=== PATIENT | male | born 1955 | race Caucasian/White ===

== ENCOUNTER 2024-05-11 20:57 | Inpatient (IN) | payer MEDICARE, SELFPAY ==
[2024-05-11 14:23] VITALS: BP 150/73
[2024-05-11 14:43] LABS: % Basophils 0.2 % (0-2); % Eosinophils 0.1 % (0-6); % Immature Granulocytes 0.2 % (0-0.5); % Lymphocytes 6.6 % (20.5-51.1); % Monocytes 3.8 % (1.7-9.3); % Neutrophils 89.1 % (42.2-75.2); Absolute Lymphocytes 0.9 10^3/uL (1.2-3.4); Absolute Monocytes 0.5 10^3/uL (0.1-0.6); Absolute Neutrophils 11.9 10^3/uL (1.4-6.5); Hematocrit 46.1 % (39.0-52.0); Mean Corp Hgb Conc. 34.7 g/dL (33.0-37.0); Mean Corpuscular Hgb 30.4 pg (27.0-31.0); Mean Corpuscular Volume 87.6 fL (80.0-94.0); Mean Platelet Volume 8.7 fL (7.4-10.4); Nucleated Red Blood Cells % 0 % (-); Platelet Count 276 10^3/uL (130-400); Red Blood Cell Count 5.26 10^6/uL (4.70-6.10); Red Cell Dist. Width 13.3 % (11.5-14.5); White Blood Cell Count 13.3 10^3/uL (4.8-10.8)
[2024-05-11 14:57] LABS: ALT (SGPT) 26 U/L (0-50); AST (SGOT) 27 U/L (17-59); Albumin 4.6 g/dl (3.5-5.0); Alkaline Phosphatase 79 U/L (38-126); Blood Urea Nitrogen 18 mg/dl (9-20); Calcium 9.2 mg/dl (8.4-10.2); Carbon Dioxide 28 mmol/L (22-30); Chloride 104 mmol/L (98-107); Glucose 123 mg/dl (70-99); Potassium 4.7 mmol/L (3.5-5.1); Sodium 142 mmol/L (135-145); Total Bilirubin 0.8 mg/dl (0.2-1.3); Total Protein 7.3 g/dl (6.3-8.2); eGFR > 60.00
[2024-05-11 15:07] LABS: Lipase 44 U/L (23-300)
--- NOTE | 2024-05-11 16:55 | ED.GENMED ---
History of Present Illness
General
Chief Complaint: Abdominal Pain
Source: patient
Exam Limitations: none
Time Seen by Provider: 05/11/24 16:40
History of Present Illness
History of Present Illness:
See MDM
Past History
Past History
ED Past Medical History: Other (Familial polyposis)
ED Past Surgical History: Bowel resection
Social History
Tobacco: Non-smoker
Alcohol: None
Personal:
Living: with family
Employment: Employed
Family History
Family History: Other (Familial polyposis)
Phy Exam
Physical Exam
Physical Exam:
See MDM
Course
Orders/Labs/Results
Orders:
Orders
05/11/24 14:35
Complete Blood Count/With Diff Urgent
Comprehensive Metabolic Panel Urgent
Lipase Urgent
05/11/24 16:51
CT Abd/pel W Iv And Oral Contr Urgent
Comment: prior SBO with resection
Reason For Exam: Abd pain, bloating
0.9% Sodium Chloride 1000 ml [Nss] 1,000 ml IV BOLUS
Iohexol [Omnipaque] See Protocol PO NOW STA
Ketorolac [Toradol] 30 mg IV NOW STA
Ondansetron Injectable [Zofran] 4 mg IV NOW STA
Abnormal Lab Results
05/11/24
14:35
WBC 13.3 H 10^3/uL
(4.8-10.8)
Absolute Neuts (auto) 11.9 H 10^3/uL
(1.4-6.5)
Absolute Lymphs (auto) 0.9 L 10^3/uL
(1.2-3.4)
Neutrophils % 89.1 H %
(42.2-75.2)
Lymphocytes % 6.6 L %
(20.5-51.1)
Glucose 123 H mg/dl
(70-99)
05/11/24 14:35
05/11/24 14:35
Vital Signs
Initial and Last Documented VS:
Initial Vital Signs
Temp Pulse Resp BP Pulse Ox
97.6 F 87 16 150/73 96
05/11/24 14:23 05/11/24 14:23 05/11/24 14:23 05/11/24 14:23 05/11/24 14:23
Last Documented Vital Signs
Temp Pulse Resp BP Pulse Ox
97.6 F 80 20 158/78 97
05/11/24 14:23 05/11/24 19:09 05/11/24 19:09 05/11/24 19:09 05/11/24 19:09
MDM/Problems Addressed
Differential Diagnosis Includes:
HPI and MDM Narrative:
68-year-old male presenting with generalized abdominal pain and bloating. Symptoms have progressed since Tuesday. Patient is concerned this is another small bowel obstruction. 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
bowel resections in the past. His last surgery was in 2022 at [place]. Patient states he is able to sip some water but cannot eat. His last meal was last night. He did have a bowel movement today and is passing some gas
Given his prior history, will obtain CT to rule out small bowel fraction
Physical exam
General: Well appearing and non-toxic
HEENT: protecting airway. Mildly dry mucous membranes
Neck: appears supple
CV: No evidence of cyanosis
Resp: No accessory muscle use
Abd: Non-distended. Soft. Bowel sounds auscultated
Extremities: No deformities
Neuro: alert
Psych: Normal affect
Skin: Intact
Problems Addressed including Acute and Chronic Conditions affecting care:
1. Abdominal pain
Acuity: acute
Prognosis: stable
Details: Given his prior history, will obtain CT to rule out small bowel obstruction
Updates
Patient was able to tolerate oral contrast. He is feeling better but CT does show some concern for air-fluid levels. We discussed small bowel obstruction versus partial small bowel obstruction versus ileus. Will admit for fluids and serial
abdominal exams
Differential Diagnosis (but not limited to): Small bowel obstruction, ileus, partial small bowel obstruction
Testing considered: Urinalysis but he denies symptoms
Drug therapy (if applicable): OTC meds, please see d/c instruction regarding Rx drugs
Amount and/or Complexity of Data Reviewed
Clinical info obtained from: Patient
External data reviewed: N/A
Labs I independently reviewed (but not limited to): Mild leukocytosis
Radiology: N/A
Pulse Ox: not hypoxic
EKG independently reviewed: N/A
Gold Plater: N/A
Critical Care: N/A
Risk of Complication:
Social Determinants of health: Good social support
Discussed with other providers: Hospitalist
Escalation of Care includes Admit/Obs: Given the concern for partial small bowel obstruction versus ileus, will admit
Occasional wrong word or 'sound a like' substitutions may have occurred due to the inherent limitations of voice recognition software. Read the chart carefully and recognize, using context, where substitutions have occurred.
*Critical Care Note
Total Time (30-74mins, 75-104mins- exclusive of procedures): Not Applicable
ED Attending Note
-
Portions of this chart may have been created with voice recognition software.� Occasional wrong word or��sound alike� substitutions may have occurred due to the inherent limitations of voice recognition software.
Discharge Plan
Departure
Patient Disposition: Admit
Date of Disposition: 05/11/24
Time of Disposition: 20:02
Admit to: Med/Surg
Presentation/result/management discussed w/ accepting MD/DO: Hospitalist
Discharge Problem:
Partial small bowel obstruction
Prescriptions:
No Action
No Current Medications
0
Referrals:
Dashawn Lee, [Family Provider] -
Interventions
Interventions:
*Risk Screen - Suicide Last Done: 05/11/24 14:23
*General Assessment Last Done: 05/11/24 16:10
*Neglect/Abuse Screening Last Done: 05/11/24 14:23
NV-Ybcpfx-Mjuyrjrkwy Assessment Last Done: 05/11/24 16:10
Discharge Date and Time
Print Language: KHMER
[2024-05-11] MEDS: NSS 1000 IV ×2 (17:07→22:19)
[2024-05-11] MEDS: ZOFRAN 4 MG IV (17:08)
[2024-05-11] MEDS: TORADOL 30 MG IV (17:08)
[2024-05-11] MEDS: OMNIPAQUE 50 ML PO (17:08)
[2024-05-11 19:09] VITALS: BP 158/78
--- NOTE | 2024-05-11 20:09 | HPS.HSE ---
Family Physician
-
Family Physician: Dashawn Lee
Chief Complaint
-
abdominal pain/distention
History of Present Illness
68-year-old male with PMH for Peutz-Jeghers's syndrome, multiple abdominal surgeries , last bowel resection in 2020 presenting with generalized abdominal pain and bloating since last Tuesday. it progressively got worse. stated nausea. denied
vomiting or diarrhea. had his regular BM today morning. Patient states he is able to sip some water but cannot eat. His last meal was last night.denied, ORTIZ, dizzy or syncope. denied fever, chills, chest pain,sob. denied dysuria or hematuria.
admitting for further management. CT pending. concern for SBO.
Medical History
Past Medical History
Past Medical History: Reports Other
Additional Past Medical History:
peutz-jeghers syndrome
Hyperlipidemia
Anxiety
Past Surgical History: Reports Other
Additional Past Surgical History:
bowel resection
Social History
Tobacco: Non-smoker
Alcohol: None
Drug: None
Personal:
Living: With Family
Family History
Family History: Not pertinent
Allergies / Home Medications
Allergies reflects when Allergies were last updated in [employer].
Home Medications with original date entered in [employer]
Allergy/Medication List:
Allergies
Allergy/AdvReac Type Severity Reaction Status Date / Time
No Known Drug Allergies Allergy Unknown Verified 05/11/24 14:27
Home Medications
No Meds [No Current Medications] 12/03/19
Review of Systems
-
Constitutional: Reports No Symptoms
EENT: Reports No Symptoms
Respiratory: Reports No Symptoms
Cardiac: Reports No Symptoms
Abdomen/GI: Reports Abdominal Pain and Nausea
: Reports No Symptoms
Musculoskeletal: Reports No Symptoms
Skin: Reports No Symptoms
Neurological: Reports No Symptoms
Endocrine: Reports No Symptoms
Hematologic/Lymphatic: Reports No Symptoms
Psych: Reports No Symptoms
Physical Exam
Vital Signs
Vital Signs
Temp Pulse Resp BP Pulse Ox
97.6 F 80 20 158/78 97
05/11/24 14:23 05/11/24 19:09 05/11/24 19:09 05/11/24 19:09 05/11/24 19:09
Physical Exam
General: Well Developed, Well Nourished and No Apparent Distress
HEENT: NormoCephalic, Moist mucous membranes and Atraumatic
Respiratory: Clear
Cardiac: S1/S2 and Regular Rhythm; No Murmur or Rub
GI: Soft, Non Tender, Normal Bowel Sounds and Distended; No Organomegaly
Rectal: Deferred by Provider
Musculoskeletal: No Clubbing, No Cyanosis and No Edema
Skin: No Rash
Neuro: AO x 3 and Nonfocal/grossly intact
Psych: Calm
Laboratory Results
-
05/11/24 14:35
05/11/24 14:35
Laboratory Results
Total Bilirubin 0.8 mg/dl (0.2-1.3) 05/11/24 14:35
AST 27 U/L (17-59) 05/11/24 14:35
ALT 26 U/L (0-50) 05/11/24 14:35
Alkaline Phosphatase 79 U/L (38-126) 05/11/24 14:35
Lipase 44 U/L (23-300) 05/11/24 14:35
Data Reviewed
-
Lab Data: Labs Reviewed by me
Impression/Plan
-
##Small bowel obstruction versus ileus
# History of Peutz-Jeghers with multiple bowel obstructions
-N.p.o.
-Fluids continued for hydration
-surgery consulted
-Toradol prn for pain
-Zofran prn for n/v
Leukocytosis likely stress reaction
-WBC 13.3, patient is afebrile
-Continue to monitor
#atrial tachycardia
-Cardizem continued
#HLD
-statin continued
#DVT Prophylaxis
-scd
#CODE status
-full code
--- NOTE | 2024-05-11 20:50 | W.PN.UPDATE ---
Update Note
Progress Note Update
This note serves as an addendum to the H&P by inside sales account executive SAM Mandie SWEENEY
HPI
68M HX r Peutz-Jeghers's syndrome, multiple abdominal surgeries , last bowel resection in 2020 pseen at ER;
- progresively worsening generalized abdominal pain and bloating since last Tuesday
- onset of nausea but no vomiting or diarrhea.
- able to tolerate sips of water but cannot eat.
- last meal was last night
- Last regular BM this morning
ROS
Denied ORTIZ, dizzy or syncope. denied fever, chills, chest pain,sob. denied dysuria or hematuria.
PHX: as above
Reviewed VS:
Vital Signs
Temp Pulse Resp BP Pulse Ox
97.6 F 80 20 158/78 97
05/11/24 14:23 05/11/24 19:09 05/11/24 19:09 05/11/24 19:09 05/11/24 19:09
PE
Gen: No Apparent Distress
HEENT: dry mucous membranes
Neck: supple
Lungs: CTA
Cor: S1/S2 and Regular Rhythm
Abdomen: Soft, Non Tender, Normal Bowel Sounds and Distended
CLINICAL MARKETING MANAGER: AAO3. NFND
MS: No Edema
Psych:calm
data
05/11/24
14:35
WBC 13.3 H
Hgb 16.0
Plt Count 276
BUN 18
Creatinine 0.9
[address] with PO contrast: - some concern for air-fluid levels DDX: partial SBO vs ileus.
Last hospitalist admission: 01/25/2020 - 01/27/2020 DC DXs
1. Small bowel obstruction.
2. Gallstones.
3. Degenerative joint disease, L5-S1.
4. Peutz-Jeghers syndrome.
ASSESSMENT & PLAN
Partial SBO vs ileus.
HX Peutz-Jeghers with multiple bowel obstructions
- IVF and NPO
- Toradol prn for pain
- Zofran prn for n/v
- GS consulted
Leukocytosis likely stress reaction
-WBC 13.3, afebrile
- trend WCC
HX [place] tachycardia
- on SKI MOLDER Cardizem
HLD
- c/w SKI MOLDER statin
DVT Px: SQH
Ful code
IP TLM
[2024-05-11 22:15] VITALS: BP 138/78; BMI 23.8
[2024-05-11] MEDS: LIPITOR 10 MG PO (22:56)
[2024-05-11] MEDS: MELATONIN 5 MG PO (22:56)
--- NOTE | 2024-05-11 23:09 | PTCARENOTE ---
Patient arrived to unit from ED via stretcher. Patient able to safely ambulate into room 318-1 on . Pt. AAOx3 and able to make needs known. No c/o pain. Tele #[id number] placed on patient. NPO discussed with patient. Oriented to room. Call cummings within
reach. Plan of care ongoing.
[2024-05-12 03:34] VITALS: BP 145/75
[2024-05-12] MEDS: TORADOL 10 MG IV ×2 (04:03→19:33)
[2024-05-12 07:05] VITALS: BP 131/74
[2024-05-12 07:26] LABS: Hematocrit 41.3 % (39.0-52.0); Mean Corp Hgb Conc. 33.9 g/dL (33.0-37.0); Mean Corpuscular Hgb 30.4 pg (27.0-31.0); Mean Corpuscular Volume 89.8 fL (80.0-94.0); Mean Platelet Volume 9.6 fL (7.4-10.4); Platelet Count 232 10^3/uL (130-400); Red Cell Dist. Width 13.6 % (11.5-14.5); White Blood Cell Count 7.3 10^3/uL (4.8-10.8)
[2024-05-12] MEDS: NSS 1000 IV ×2 (08:28→21:06)
[2024-05-12] MEDS: HEPARIN 5000 UNITS SC ×2 (08:28→19:32)
[2024-05-12] MEDS: CARDIZEM CD 120 MG PO (08:28)
[2024-05-12 10:59] VITALS: BP 132/78
--- NOTE | 2024-05-12 11:26 | CON.GS ---
Addendum entered and electronically signed by Garret Oconnor MD 05/12/24 11:41:
Patient is a 68 yo M with a PMH of HLD and Peutz-Jeghers syndrome c/b SBO's s/p 4 prior exploratory laparotomies and bowel resections most recently in 2020 at [facility] for anastomotic revision. He has had prior issues with small bowel obstructions,
but none since 2020. He presents with similar though mild symptoms of nausea and abdominal distention. No episodes of vomiting. No fevers or chills. Currently feels improved and is passing flatus. He is interested in trying liquids.
Gen: NAD
Abd: soft, NT/ND, non-peritoneal
Labs and CT scan imaging were reviewed
-- No plans for surgical intervention
-- Trial of clears, OK to ADAT to fulls
-- OOB/ambulate, minimize narcotics, correct electrolytes
Original Note:
Medical History
-
History of Present Illness:
Mr Nam with a h/o PJS and prior transverse colon resection x1 and SBR x2 for unresectable polyps with recurrent SBO's thereafter with last admission in 2019 for this who reports he underwent ex lap for christian and resection of bowel at at prior
anastomosis site February of 2020 at [facility]. He has not had any bowel obstructions since that time, until yesterday when he developed symptoms similar to prior SBO's but more mild. He was nauseated with abdominal distention and generalized abdominal
pain but denies vomiting. He notes that today, he feels somewhat better and has been passing flatus with improvement in pain. He denies fevers or chills.
Past Medical History
Past Medical History: Hypercholesterolemia and Other (peutz-jeghers syndrome, recurrent SBO)
Past Surgical History: Bowel Resection (Ex lap and SBR for 2 nonresectable polyps, transverse colon resection x1 for polyps. Ex lap 02/2020 for CHRISTIAN and resection of prior stenosed anastomosis at [facility])
Social History
Tobacco: Non-Smoker
Personal:
Living: With Family
Family History
Family History: Other (peutz-jeghers syndrome)
Allergies / Home Medications
Allergy/AdvReac Type Severity Reaction Status Date / Time
No Known Drug Allergies Allergy Unknown Verified 05/11/24 14:27
�Medication �Instructions �Recorded �Confirmed �Type
diltiazem HCl 120 mg 120 mg PO DAILY 05/11/24 05/11/24 History
capsule,extended release 24 hr
(Cardizem CD)
simvastatin 20 mg tablet 20 mg PO HS 05/11/24 05/11/24 History
Review of Systems
-
History Source: Patient
All other systems: Negative unless noted
A 10 point review of systems was completed, and was negative except as per HPI.
Physical Exam
Vital Signs
Temp Pulse Resp BP Pulse Ox
98.1 F 79 18 132/78 99
05/12/24 10:59 05/12/24 10:59 05/12/24 10:59 05/12/24 10:59 05/12/24 10:59
05/11/24 05/12/24 05/13/24
06:59 06:59 06:59
Actual Weight 81.647 kg
Body Mass Index (BMI) 23.8
Lab Results
05/12/24 06:19
05/11/24 14:35
WBC 7.3 10^3/uL (4.8-10.8) 05/12/24 06:19
Hgb 14.0 g/dL (13.0-18.0) 05/12/24 06:19
Hct 41.3 % (39.0-52.0) 05/12/24 06:19
Plt Count 232 10^3/uL (130-400) 05/12/24 06:19
Abs Immat Gran (auto) 0.0 10^3/uL (0-0.05) 05/11/24 14:35
Neutrophils % 89.1 % (42.2-75.2) H 05/11/24 14:35
Physical Exam
General: Well Developed and Well Nourished
HEENT: Moist Mucous Membranes
Respiratory: Non Labored Respirations
GI: Soft, Non Tender and Distended (mild)
Neuro: Awake, Alert and AO x 3
Psych: Calm
Data Reviewed
-
CT Scan: Image Personally Visualized and interpreted, Report Reviewed by me, Discussed with Physician and Discussed with Patient
Labs: Labs Reviewed by me, Discussed with Physician and Discussed with Patient
Old Records: Reviewed
Assessment / Plan
-
68 yo male with h/o PJS and prior transverse colon resection x1 and SBR x2 for unresectable polyps with recurrent SBO's thereafter with last admission in 2019 for this who reports he underwent ex lap for christian and resection of bowel at at prior
anastomosis site February of 2020 at [facility] with no SBO's since that time. Presenting with nausea, abdominal pain and distention. CT imaging reviewed with findings consistent with partial sbo likely adhesive vs possible ileus/enteritis. Clinically
improved this am with resolution of nausea and pain, passing flatus. AFVSS. No leukoctysois.
--Will follow nonoperatively at this time for continued clinical improvement
--Start on clear liquid diet and advance as tolerated to fulls
--Analgesics/antiemetics prn
--Medical management as per primary team, d/w Dr. Mayberry
--- NOTE | 2024-05-12 11:44 | W.PN.HOSP.TC ---
Today's Communication/Plan
-
Advance diet
Assessment / Plan
Assessment / Plan
Impression:
Patient with multiple previous abdominal surgery, last surgery was 4 years ago on 2020, came to the ER with generalized abdominal pain and bloating.
CT abdomen pelvis shows:
Findings suggesting developing small bowel obstruction/ileus with a transition point in the mid abdomen at an anastomotic site. Similar to previous exam.
New small bowel wall thickening. This can be seen with enteritis due to infection or inflammation. Ischemia is less likely but not excluded.
Mild free fluid in the mid abdomen likely reactive.
Gallstones. Increased in number.
Assessment/plan:
Small bowel obstruction versus ileus.
CT abdomen pelvis shows:
Findings suggesting developing small bowel obstruction/ileus with a transition point in the mid abdomen at an anastomotic site. Similar to previous exam.
New small bowel wall thickening. This can be seen with enteritis due to infection or inflammation. Ischemia is less likely but not excluded.
Mild free fluid in the mid abdomen likely reactive.
Gallstones. Increased in number
History of Peutz-Jeghers with multiple bowel obstructions
05/12
Discussed with surgery team
Will start clear liquid diet.
Patient is passing gases
If tolerates clear liquid will do soft diet
Leukocytosis likely stress reaction
Resolved
Atrial tachycardia
-Cardizem continued
No need for director of analytics
Hyperlipidemia
-statin continued
CODE STATUS: Full code
DVT prophylaxis: SCDs
Diet: start clear liquid diet
I spent 65 minutes giving direct care to the patient including chart review, talking to consultants, talking to treatment team, family communication.
Anticipated Discharge: Within 24 hours
Subjective/Interval History
-
Date of Service: May 12, 2024
Patient seen and examined at bedside, denies any chest pain or shortness of breath, improved abdominal pain, no nausea, no vomiting, no diarrhea or constipation.
Passing gas but no bowel movement, last bowel movement was yesterday.
Discussed with surgery team.
Will start clear liquid diet.
Objective Data
-
Labs:
Laboratory Results
05/12/24
06:19
WBC 7.3
Hgb 14.0
Hct 41.3
Plt Count 232
Vital Signs:
Vital Signs
Temp Pulse Resp BP Pulse Ox
98.1 F 79 18 132/78 99
05/12/24 10:59 05/12/24 10:59 05/12/24 10:59 05/12/24 10:59 05/12/24 10:59
Physical Exam
-
General: Well Developed, Well Nourished, No Apparent Distress and Comfortable
HEENT: Normocephalic, Atraumatic, Moist Mucous Membranes, No Ptosis, PERRLA and Nose Appears Normal
Respiratory: Clear to Auscultation and Non Labored Respirations
Cardiac: Regular Rhythm and S1/S2
Breast: Deferred by me
GI: Soft, Nontender, Nondistended and Normal Bowel Sounds
Genito-urinary: No Costovertebral Tender
Musculoskeletal: No Clubbing, No Cyanosis and No Edema
Skin: Warm
Neuro: Awake, Alert, Oriented, AO x 3 and No Motor Deficits
Psych: Calm
Data Reviewed
-
Diagnostic Radiology: Image personally visualized and interpreted and Report Reviewed by me
CT Scan: Image personally visualized and interpreted and Report Reviewed by me
Ultrasound: Image personally visualized and interpreted and Report Reviewed by me
MRI: Image personally visualized and interpreted and Report Reviewed by me
Medical Tests (Nuc Med, Echo etc): Image personally visualized and interpreted and Report Reviewed by me
Labs: Labs Reviewed by me
Old Records: Reviewed
--- NOTE | 2024-05-12 12:57 | CM ---
CM met with pt at bedside.
Pt resides with spouse in a 2SH with no concerns.
Ind with amb/adl's using no AD. No DME. + [employer]. 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
PCP is Dashawn Lee and pharmacy is [facility]
No HC or SNF history.
DC dispo home no skilled dc needs anticipated.
[2024-05-12 14:59] VITALS: BP 145/84
[2024-05-12] MEDS: LIPITOR 10 MG PO (21:04)
[2024-05-12] MEDS: MELATONIN 5 MG PO (21:04)
[2024-05-12 23:23] VITALS: BP 124/75
[2024-05-13] MEDS: TORADOL 10 MG IV (01:33)
[2024-05-13 07:00] VITALS: BP 123/66
[2024-05-13 07:20] LABS: Hematocrit 39.1 % (39.0-52.0); Hemoglobin 13.2 g/dL (13.0-18.0); Mean Corp Hgb Conc. 33.8 g/dL (33.0-37.0); Mean Corpuscular Hgb 30.1 pg (27.0-31.0); Mean Corpuscular Volume 89.3 fL (80.0-94.0); Mean Platelet Volume 9.3 fL (7.4-10.4); Platelet Count 197 10^3/uL (130-400); Red Blood Cell Count 4.38 10^6/uL (4.70-6.10); Red Cell Dist. Width 13.3 % (11.5-14.5); White Blood Cell Count 6.5 10^3/uL (4.8-10.8)
[2024-05-13] MEDS: HEPARIN 5000 UNITS SC (08:22)
[2024-05-13] MEDS: CARDIZEM CD 120 MG PO (08:22)
--- NOTE | 2024-05-13 11:50 | W.PN.HOSP.TC ---
Today's Communication/Plan
-
Discharge home today if tolerates lunch
Assessment / Plan
Assessment / Plan
Impression:
Patient with multiple previous abdominal surgery, last surgery was 4 years ago on 2020, came to the ER with generalized abdominal pain and bloating.
CT abdomen pelvis shows:
Findings suggesting developing small bowel obstruction/ileus with a transition point in the mid abdomen at an anastomotic site. Similar to previous exam.
New small bowel wall thickening. This can be seen with enteritis due to infection or inflammation. Ischemia is less likely but not excluded.
Mild free fluid in the mid abdomen likely reactive.
Gallstones. Increased in number.
Assessment/plan:
Small bowel obstruction versus ileus.
CT abdomen pelvis shows:
Findings suggesting developing small bowel obstruction/ileus with a transition point in the mid abdomen at an anastomotic site. Similar to previous exam.
New small bowel wall thickening. This can be seen with enteritis due to infection or inflammation. Ischemia is less likely but not excluded.
Mild free fluid in the mid abdomen likely reactive.
Gallstones. Increased in number
History of Peutz-Jeghers with multiple bowel obstructions
05/12
Discussed with surgery team
Will start clear liquid diet.
Patient is passing gases
If tolerates clear liquid will do soft diet
05/13
Tolerating diet.
Had bowel movement overnight.
Will discharge home if tolerates low residual diet at lunch.
Leukocytosis likely stress reaction
Resolved
Atrial tachycardia
-Cardizem continued
No need for gambling monitor
Hyperlipidemia
-statin continued
CODE STATUS: Full code
DVT prophylaxis: SCDs
Diet: start clear liquid diet
I spent 50 minutes giving direct care to the patient including chart review, talking to consultants, talking to treatment team, family communication.
Anticipated Discharge: Today
Subjective/Interval History
-
Date of Service: May 13, 2024
Patient seen and examined at bedside, denies any chest pain or shortness of breath, no abdominal pain, no nausea, no vomiting, no diarrhea or constipation.
Tolerating diet
Discharge if tolerates lunch meal.
Objective Data
-
Labs:
Laboratory Results
05/13/24
06:38
WBC 6.5
Hgb 13.2
Hct 39.1
Plt Count 197
Vital Signs:
Vital Signs
Temp Pulse Resp BP Pulse Ox
98.9 F 86 18 123/66 96
05/13/24 07:00 05/13/24 07:00 05/13/24 07:00 05/13/24 07:00 05/13/24 07:00
I&O
05/12/24 05/13/24 05/14/24
06:59 06:59 06:59
Intake Total 720 / 720 1440 / 1440
Balance 720 / 720 1440 / 1440
Physical Exam
-
General: Well Developed, Well Nourished, No Apparent Distress and Comfortable
HEENT: Normocephalic, Atraumatic, Moist Mucous Membranes, No Ptosis, PERRLA and Nose Appears Normal
Respiratory: Clear to Auscultation and Non Labored Respirations
Cardiac: Regular Rhythm and S1/S2
Breast: Deferred by me
GI: Soft, Nontender, Nondistended and Normal Bowel Sounds
Genito-urinary: No Costovertebral Tender
Musculoskeletal: No Clubbing, No Cyanosis and No Edema
Skin: Warm
Neuro: Awake, Alert, Oriented, AO x 3 and No Motor Deficits
Psych: Calm
--- NOTE | 2024-05-13 11:53 | W.DCSUMMARY ---
Discharge Summary
Discharge Data
Date of Admission: 05/11/24
Date of Discharge: 05/13/24
-
Pending Results: No
Hospital Course
Small bowel obstruction versus ileus.
CT abdomen pelvis shows:
Findings suggesting developing small bowel obstruction/ileus with a transition point in the mid abdomen at an anastomotic site. Similar to previous exam.
New small bowel wall thickening. This can be seen with enteritis due to infection or inflammation. Ischemia is less likely but not excluded.
Mild free fluid in the mid abdomen likely reactive.
Gallstones. Increased in number
History of Peutz-Jeghers with multiple bowel obstructions
05/12
Discussed with surgery team
Will start clear liquid diet.
Patient is passing gases
If tolerates clear liquid will do soft diet
05/13
Tolerating diet.
Had bowel movement overnight.
Will discharge home if tolerates low residual diet at lunch.
Leukocytosis likely stress reaction
Resolved
Atrial tachycardia
-Cardizem continued
No need for residential monitor
Hyperlipidemia
-statin continued
CODE STATUS: Full code
DVT prophylaxis: SCDs
Diet: start clear liquid diet
I spent 50 minutes giving direct care to the patient including chart review, talking to consultants, talking to treatment team, family communication.
Anticipated Discharge: Today
Discharge Plan
-
Patient Disposition: Home (Routine Discharge)
Discharge Diagnosis/Procedures: Small bowel obstruction
Diet: As tolerated and Low Residue
Activity: No restrictions
Driving Restrictions: As prior to admission
Referrals:
Garret Oconnor MD [Active] - in one to two months
Dashawn Lee DO [Family Provider] -
Prescriptions:
Continued
simvastatin 20 mg Tablet
20 mg PO HS
diltiazem HCl [Cardizem CD] 120 mg Capsule,Extended Release 24hr
120 mg PO DAILY
Discharge Orders:
Discharge Patient (As Directed); Ordered 05/13/24
Ordered By: Chalino Mayberry
Discharge Date and Time
Print Language: GREEK
--- NOTE | 2024-05-13 13:13 | CM ---
Plan: discharge to home today; will transport; no needs
--- NOTE | 2024-05-13 13:46 | W.PN.GS2 ---
Addendum entered and electronically signed by Garret Oconnor MD 05/13/24 14:12:
Patient seen and examined.
No complaints. Denies any nausea or vomiting. He is tolerating clears. Passing flatus and stools.
Gen: NAD
Abd: soft, NT, mild distension, non-peritoneal
68 yo male presenting with pSBO with clinical improvement
Tolerating dietary advancements with +flatus/stools
-- No plans for surgical intervention
-- ADAT to LRD
-- OK for d/c from surgical standpoint
Original Note:
Today's Communication / Plan
-
dispo planning
Assessment / Plan
-
68 yo male presenting with pSBO with clinical improvement
Tolerating dietary advancements with +flatus/stools
-- No plans for surgical intervention
-- ADAT to LRD
-- OK for d/c from surgical standpoint
Subjective Data
-
Date of Service: May 13, 2024
Patient seen and examined at bedside with Dr. Oconnor around 0845 this am. Tolerating fulls. Did have bloating and cramping overnight which was relieved when had a BM and was able to pass some flatus as well. Overall feels improved.
Objective Data
-
Intake and Output
05/12/24 05/13/24 05/14/24
06:59 06:59 06:59
Intake Total 720 / 720 1440 / 1440
Balance 720 / 720 1440 / 1440
Intake:
Oral fluids 720 / 720 480 / 480
IV fluids (Total) 960 / 960
Other:
Number of approximated MODERATE 2 4 1
amounts of urine
Vital Signs
Temp Pulse Resp BP Pulse Ox
98.9 F 86 18 123/66 96
05/13/24 07:00 05/13/24 07:00 05/13/24 07:00 05/13/24 07:00 05/13/24 07:00
Lab Results
05/13/24 06:38
05/11/24 14:35
Calcium 9.2 mg/dl (8.4-10.2) 05/11/24 14:35
Total Bilirubin 0.8 mg/dl (0.2-1.3) 05/11/24 14:35
AST 27 U/L (17-59) 05/11/24 14:35
ALT 26 U/L (0-50) 05/11/24 14:35
Alkaline Phosphatase 79 U/L (38-126) 05/11/24 14:35
Total Protein 7.3 g/dl (6.3-8.2) 05/11/24 14:35
Albumin 4.6 g/dl (3.5-5.0) 05/11/24 14:35
Physical Exam
-
NAD
ABD softly distended, nt, scabbler
[2024-05-13 14:02] VITALS: BP 131/72
== END 2024-05-13 14:07 | disposition home or self-care (01) | DRG 389 ==
LOC: 3 WEST ACU 20:57
PROVIDERS: Registered Nurse; ADMITTING PHYSICIAN Internal Medicine; ATTENDING PHYSICIAN General Practice; CONSULT PHYSICIAN Surgery; EMERGENCY PHYSICIAN Student in an Organized Health Care Education/Training Program; FAMILY PHYSICIAN Family Medicine
DX: K56.600 Partial intestinal obstruction, unspecified as to cause (principal); I47.19 Other supraventricular tachycardia; Q85.89 Other phakomatoses, not elsewhere classified; K56.7 Ileus, unspecified; K80.20 Calculus of gallbladder without cholecystitis without obstruction; D72.829 Elevated white blood cell count, unspecified; E78.00 Pure hypercholesterolemia, unspecified; F41.9 Anxiety disorder, unspecified; Z90.49 Acquired absence of other specified parts of digestive tract
CPT/HCPCS: 74177; 80053; 83690; 85025; 85027; 96361; 96374; 96375; 99284; Q9967

== ENCOUNTER 2024-05-13 20:39 | Inpatient (IN) | payer MEDICARE, SELFPAY ==
[2024-05-13 16:55] VITALS: BP 157/92
--- NOTE | 2024-05-13 18:38 | ED.GENMED ---
History of Present Illness
General
Chief Complaint: Abdominal Symptoms
Source: patient, records and spouse
Exam Limitations: none
Time Seen by Provider: 05/13/24 18:18
History of Present Illness
History of Present Illness:
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 Patient was admitted 2 days ago for a partial small bowel obstruction which was managed
conservatively. He was doing well during his hospital stay and was able to have multiple bowel movements today. He was tolerating clear liquids without any issues. He had a grilled cheese and jaqueline arielle for lunch this afternoon and was discharged
about 30 minutes later. He had a recurrence of his nausea and abdominal pain about an hour after returning home. He feels he was discharged too soon. He denies any vomiting. Last bowel movement was around 3 PM this afternoon. states his
abdomen seems distended similar to his presentation on Tuesday.
Past History
Past History
ED Past Medical History: Other (Familial polyposis)
ED Past Surgical History: Bowel resection
Social History
Tobacco: Non-smoker
Alcohol: None
Personal:
Living: with family
Employment: Employed
Family History
Family History: Other (Familial polyposis)
Phy Exam
General Physical Exam
General Presentation: well appearing and no apparent distress
General age: appears stated age
General Skin: warm and dry
General Habitus: normal
General Mental: alert
ENT Exam
ENT Exam: normocephalic
Gastrointestinal Exam
Gastrointestinal Exam: soft, surgical scar, tender and other (Abdomen soft, mildly distended. Hyperactive bowel sounds. +Mild generalized tenderness throughout. No rebound or guarding. )
Neurological Exam
Neurological Exam: alert
Urvashi Coma Scale
Eye Opening: Spontaneous
Verbal Response: Oriented
Motor Response: Obeys Commands
GCS Total Score: 15
Skin Exam
Skin Exam: normal color and warm/dry
Psychiatric Exam
Psychiatric Exam: normal mood/affect
Course
Orders/Labs/Results
Orders:
Orders
05/13/24 18:38
0.9% Sodium Chloride 1000 ml [Nss] 1,000 ml IV BOLUS
HYDROmorphone [Dilaudid] 0.5 mg IV NOW STA
Ondansetron Injectable [Zofran] 4 mg IV NOW STA
05/13/24 18:45
Comprehensive Metabolic Panel Urgent
05/13/24 20:18
CR Abdomen - 1 View Routine
Comment:
Reason For Exam: SBO
05/13/24 20:21
Admit/Transfer Patient As Directed
Co-Sign Provider:
Level of Care: Inpatient admission
Assign to:: Medical/Surgical
Physician / Group: Saray Alanis
Diagnosis: SBO
Reason for Hospitalization: SBO
Expected length of stay greater than two midnights?: Yes
ELOS- Estimated Length of Stay in days: 3
I certify the patient meets the requirements for IP care: Yes
Code Status As Directed
Resuscitation Status: Full Code
PRN Pain Medication Management As Directed
May give lesser potent ordered pain med per pt: Yes
preference::
Protocol:: Medication orders for pain may be administered in a
manner that supports deferring to patient preference
when the pt is:
- Requesting an ordered lesser potent pain medication.
Least to most potent pain medications are defined
as: acetaminophen < NSAID < tramadol < opioids
(morphine, oxycodone, hydromorphone).
- Requesting a lesser dose of the same medication IF
ORDERED.
- Requesting a less intrusive route of administration
if both routes are prescribed by the provider (PO <
IV).
Abnormal Lab Results
05/13/24
18:45
Carbon Dioxide 31 H mmol/L
(22-30)
Glucose 105 H mg/dl
(70-99)
ALT 52 H U/L
(0-50)
Total Protein 6.0 L g/dl
(6.3-8.2)
05/13/24 18:45
Vital Signs
Initial and Last Documented VS:
Initial Vital Signs
Temp Pulse Resp BP Pulse Ox
97.9 F 82 16 157/92 99
05/13/24 16:55 05/13/24 16:55 05/13/24 16:55 05/13/24 16:55 05/13/24 16:55
Last Documented Vital Signs
Temp Pulse Resp BP Pulse Ox
97.9 F 79 16 141/81 97
05/13/24 16:55 05/13/24 19:53 05/13/24 16:55 05/13/24 19:53 05/13/24 19:53
MDM/Problems Addressed
Differential Diagnosis Includes:
68yoM here with abd cramping and nausea. Admitted 2 days ago for partial SBO. Discharged today after lunch. Symptoms recurred 1 hour later. Last BM at 3pm today. No vomiting. He is mildly hypertensive with otherwise normal vital signs. He is
nontoxic-appearing. Abdomen is mildly distended with hyperactive bowel sounds. No signs of peritonitis. Differential diagnosis includes but is not limited to: Bowel obstruction vs. ileus
Case discussed with Dr. Oconnor, general surgeon who evaluated him earlier today. General surgery not recommending repeat imaging at this time. IV Dilaudid, Zofran, and fluid bolus ordered. Will admit to the hospitalist service for further
management.
*Critical Care Note
Total Time (30-74mins, 75-104mins- exclusive of procedures): Not Applicable
ED Attending Note
-
Portions of this chart may have been created with voice recognition software.� Occasional wrong word or��sound alike� substitutions may have occurred due to the inherent limitations of voice recognition software.
Discharge Plan
Departure
Patient Disposition: Admit
Date of Disposition: 05/13/24
Time of Disposition: 19:04
Presentation/result/management discussed w/ accepting MD/DO: Hospitalist
Discharge Problem:
Partial small bowel obstruction
Interventions
Interventions:
*Risk Screen - Suicide Last Done: 05/13/24 19:54
*General Assessment Last Done: 05/13/24 19:54
*Neglect/Abuse Screening Last Done: 05/13/24 19:54
*ED- Fall Risk Assessment Last Done: 05/13/24 19:54
*ED COVID-19 Vaccine History Last Done: 05/13/24 19:54
ZO-Fxazqy-Emmhhuhlhy Assessment Last Done: 05/13/24 19:54
[2024-05-13] MEDS: NSS 1000 IV ×2 (19:48→22:21)
[2024-05-13] MEDS: DILAUDID 0.5 MG IV (19:49)
[2024-05-13] MEDS: ZOFRAN 4 MG IV (19:49)
--- NOTE | 2024-05-13 19:51 | HPS.HSE ---
Family Physician
-
Family Physician: Dashawn Lee
Chief Complaint
-
nausea and abdominal pain
History of Present Illness
Patient is a 68-year-old male with past medical history significant for Peutz-Jeghers syndrome, hyperlipidemia, atrial tachycardia and anxiety who presented to [facility] ED for evaluation of nausea and abdominal pain. Patient was admitted
here 2 days ago with SBO and treated conservatively and discharged home this morning. Prior to discharge patient had clinical improvement with being able to tolerate diet advancements, had flatus and passed stool. Patient reports grilled cheese and
jaqueline arielle at lunch here and was discharged home shortly after. He reports approximately 1 hour after returning home he began with nausea and abdominal pain. Patient denies any emesis and his last BM was around 1500 today. He reports he feels his
body is recovering slower from episodes slower than he has in the past.
Medical History
Past Medical History
Past Medical History: Reports Other
Additional Past Medical History:
Peutz-Jeghers syndrome
Atrial tachycardia
Hyperlipidemia
Anxiety
Past Surgical History: Reports Other
Additional Past Surgical History:
bowel resection
Social History
Tobacco: Non-smoker
Alcohol: None
Drug: None
Personal:
Living: With Family
Family History
Family History: Not pertinent
Allergies / Home Medications
Allergies reflects when Allergies were last updated in [employer].
Home Medications with original date entered in [employer]
Allergy/Medication List:
Allergies
Allergy/AdvReac Type Severity Reaction Status Date / Time
No Known Drug Allergies Allergy Unknown Verified 05/13/24 16:58
Home Medications
diltiazem HCl 120 mg capsule,extended release 24 hr (Cardizem CD) 120 mg PO DAILY 05/11/24
simvastatin 20 mg tablet 20 mg PO HS 05/11/24
Review of Systems
-
History Source: Patient
Abdomen/GI: Reports Abdominal Pain and Nausea
Physical Exam
Vital Signs
Vital Signs
Temp Pulse Resp BP Pulse Ox
97.9 F 82 16 157/92 99
05/13/24 16:55 05/13/24 16:55 05/13/24 16:55 05/13/24 16:55 05/13/24 16:55
Physical Exam
General: Well Developed, Well Nourished, No Apparent Distress, Comfortable and Conversant
HEENT: NormoCephalic, Moist mucous membranes, Atraumatic, [place] Conjunctivae, Nose Appears Normal and Ears Appear Normal
Respiratory: Clear
Cardiac: S1/S2 and Regular Rhythm
Breast: Deferred by me
GI: Soft, Non Tender, Non Distended and Normal Bowel Sounds; No Organomegaly
Rectal: Deferred by Provider
Genito-urinary: Deferred by me
Musculoskeletal: No Clubbing, No Cyanosis and No Edema
Skin: IV/Catheter Site
Neuro: Awake, Alert, AO x 3 and Nonfocal/grossly intact
Psych: Calm and Intact Judgment/Insight
Data Reviewed
-
Lab Data: Labs Reviewed by me
Impression/Plan
-
IMPRESSION/PLAN:
#recurrent SBO
#Peutz-Jeghers syndrome
recently hospitalized for SBO, discharged earlier today after conservative management
- Admit to med/surg
- abd x-ray pending
- NPO
- bowel rest
- IVF
- Consult GS
#Atrial tachycardia
- continue diltiazem
#Hyperlipidemia
- continue simvastatin
#Anxiety
Code status: Full code
DVT prophylaxis: SCDs
[2024-05-13 19:53] VITALS: BP 141/81
[2024-05-13 20:04] LABS: ALT (SGPT) 52 U/L (0-50); AST (SGOT) 40 U/L (17-59); Albumin 3.5 g/dl (3.5-5.0); Alkaline Phosphatase 78 U/L (38-126); Blood Urea Nitrogen 11 mg/dl (9-20); Calcium 8.9 mg/dl (8.4-10.2); Carbon Dioxide 31 mmol/L (22-30); Chloride 104 mmol/L (98-107); Glucose 105 mg/dl (70-99); Potassium 4.2 mmol/L (3.5-5.1); Sodium 141 mmol/L (135-145); Total Bilirubin 0.7 mg/dl (0.2-1.3); eGFR > 60.00
--- NOTE | 2024-05-13 20:29 | W.PN.UPDATE ---
Update Note
Progress Note Update
Patient seen in conjunction with HOLLY. I agree with her findings and history and physical. I concur with assessment and plan unless stated otherwise.
Briefly, this is a 68-year-old male with past medical history significant for Peutz-Jeghers syndrome complicated by recurrent bowel obstruction status post multiple surgeries with the last surgery in 2020 for adhesiolysis to treat the SBO at that
time presents to the emergency department a couple of days ago with abdominal pain distention nausea and was found to to have a partial small bowel obstruction. This was managed conservatively and patient was advanced to regular diet today. After
having a regular diet the patient was discharged home. On arrival at home he states he continues to have abdominal pain and nausea without vomiting. He did have a bowel movement and is passing flatus. He states that usually recovers quickly but
he feels that his recovery rate has reduced over the years and he was discharged to .
On my examination patient is well-appearing. He still has some abdominal distention but he states he is unchanged from earlier examination today. He has positive bowel sounds in all 4 quadrants. No tenderness to palpation and not tympanitic.
Assessment and plan
Recurrent small bowel obstruction however still symptomatic.
Will admit to MedSurg
Will get abdominal flatplate to see if there is clearance of contrast to assess recovery
N.p.o. for now as patient has requested, antiemetics and pain control
Gentle hydration
Advance diet as tolerated
Surgical consult to see tomorrow
DVT prophylaxis
Full code
[2024-05-13 22:07] VITALS: BMI 23.8
[2024-05-13 22:08] VITALS: BP 148/79
--- NOTE | 2024-05-13 22:48 | PTCARENOTE ---
Received pt. from ER to [facility] 2114, able to walk to room bed with steady gait. Denies nausea at present and states his pain is tolerable after receiving medication in ER. Pt. oriented to room and unit policies, questions answered, medication
reviewed, plan of care discussed. Pt. in NAD, VSS, even and unlabored breathing on RA, has no questions at this time.
[2024-05-14] MEDS: TORADOL 10 MG IV ×2 (03:16→22:42)
[2024-05-14 08:30] VITALS: BP 126/80
[2024-05-14] MEDS: CARDIZEM CD 120 MG PO (08:53)
[2024-05-14] MEDS: NSS 1000 IV ×2 (08:53→18:16)
--- NOTE | 2024-05-14 09:57 | W.PN.GS2 ---
Today's Communication / Plan
-
N.p.o., IV fluids
Will advance diet once there is more robust return of bowel function.
Assessment / Plan
-
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 The
revision was in 2020 for recurrent small bowel obstructions at the anastomosis, since then he has had no's bowel bowel obstructions until this past week. He was discharged on 05/13 but was readmitted later that day for recurrence of his symptoms
(nausea, abdominal pain)
N.p.o., IV fluids. Okay to hold off on NG tube for now.
Open out of bed and ambulate as able.
General Surgery will continue to follow with serial abdominal exams.
I did explain to the patient that if he ever does need further revision/surgery it be prudent to perform a cholecystectomy as he has at least 1 gallstone that is roughly 3 cm in diameter which puts him at high risk for gallbladder cancer.
Time Spent
Total Time Spent with Patient (in minutes): 20
Subjective Data
-
Date of Service: May 14, 2024
Interval Events:
No acute events overnight. Slept well. Pain Controlled. Denies Nausea/Vomiting, limited bowel function.
Objective Data
-
Intake and Output
05/13/24 05/14/24 05/15/24
06:59 06:59 06:59
Intake Total 800 / 800
Balance 800 / 800
Intake:
IV fluids (Total) 800 / 800
Vital Signs
Temp Pulse Resp BP Pulse Ox
98.3 F 77 16 126/80 98
05/14/24 08:30 05/14/24 08:30 05/14/24 08:30 05/14/24 08:30 05/14/24 08:30
Lab Results
05/13/24 18:45
Calcium 8.9 mg/dl (8.4-10.2) 05/13/24 18:45
Total Bilirubin 0.7 mg/dl (0.2-1.3) 05/13/24 18:45
AST 40 U/L (17-59) 05/13/24 18:45
ALT 52 U/L (0-50) H 05/13/24 18:45
Alkaline Phosphatase 78 U/L (38-126) 05/13/24 18:45
Total Protein 6.0 g/dl (6.3-8.2) L 05/13/24 18:45
Albumin 3.5 g/dl (3.5-5.0) 05/13/24 18:45
Physical Exam
-
GENERAL/NEURO: Awake, Alert, no distress
CHEST: Unlabored breathing on RA
ABDOMEN: Soft, Non-Tender, mildly distended
Patient has a carnes catheter: No
Patient has a central line: No
--- NOTE | 2024-05-14 10:01 | W.PN.HOSP.TC ---
Today's Communication/Plan
-
See plan
Assessment / Plan
Assessment / Plan
Gen: NAD, AAOx3.
Eyes: EOMI, PERRLA, no scleral icterus.
Neck: supple.
CV: RRR, +S1/S2, no m/r/g.
Resp: CTAB, no rales, wheezes, or rhonchi.
Abd: +BS, soft, NT, ND
Skin: No rashes.
Neuro: CN 2-12 intact, non-focal.
Psych: Normal mood and affect.
Abd Xray: Persistent dilated loops of small bowel within the left upper quadrant, likely secondary to ongoing small bowel obstruction.
Recurrent SBO:
-h/o Peutz-Jeghers syndrome
-recently hospitalized for SBO, discharged earlier on the day of admission after conservative management
-NPO/IVFs
-surgery following
Other problems:
Atrial tachycardia: continue diltiazem
HLD: cont statin
Anxiety
FULL/Lovenox
Anticipated Discharge: 24 - 48 hours
Subjective/Interval History
-
Date of Service: May 14, 2024
No new complaints today.
Objective Data
-
Vital Signs:
Vital Signs
Temp Pulse Resp BP Pulse Ox
98.3 F 77 16 126/80 98
05/14/24 08:30 05/14/24 08:30 05/14/24 08:30 05/14/24 08:30 05/14/24 08:30
I&O
05/13/24 05/14/24 05/15/24
06:59 06:59 06:59
Intake Total 800 / 800
Balance 800 / 800
[2024-05-14 11:01] LABS: Hematocrit 37.6 % (39.0-52.0); Hemoglobin 12.6 g/dL (13.0-18.0); Mean Corp Hgb Conc. 33.5 g/dL (33.0-37.0); Mean Corpuscular Hgb 29.9 pg (27.0-31.0); Mean Corpuscular Volume 89.1 fL (80.0-94.0); Mean Platelet Volume 9.3 fL (7.4-10.4); Platelet Count 203 10^3/uL (130-400); Red Blood Cell Count 4.22 10^6/uL (4.70-6.10); Red Cell Dist. Width 13.2 % (11.5-14.5); White Blood Cell Count 5.4 10^3/uL (4.8-10.8)
--- NOTE | 2024-05-14 14:32 | CM ---
Patient seen at bedside. Patient states that he was recently here at and returned due to further issues. Patient states that he has no changes in his discharge plan at this time. Patient states that he lives in a 2 story home with his spouse.
Patient PCP is Dr. Dashawn Lee and the pharmacy is [facility] on [address]. Patient has no history of SNF or VN needs. Patient has no DME at home. Patient is working at that time. CM will continue to follow for discharge planning needs.
Plan; home with no needs anticipated.
[2024-05-14 16:00] VITALS: BP 140/66
[2024-05-14] MEDS: LOVENOX 40 MG SC (18:15)
[2024-05-14] MEDS: LIPITOR 10 MG PO (21:13)
[2024-05-14 23:25] VITALS: BP 135/83
[2024-05-15] MEDS: NSS 1000 IV ×2 (04:21→18:35)
[2024-05-15 07:10] VITALS: BP 136/73
--- NOTE | 2024-05-15 07:13 | W.PN.GS2 ---
Addendum entered and electronically signed by Garret Oconnor MD 05/15/24 16:52:
Patient seen and examined.
Passing multiple stools and flatus following SBFT. No nausea or vomiting.
Gen: NAD
Abd: soft, NT/ND, non-peritoneal, prior incisions well healed
Patient is a 68 yo M p/w partial SBO secondary to adhesions
AVSS
Labs unremarkable
Clinical and radiographic improvement
-- Clears
-- No plans for surgical intervention
Original Note:
Today's Communication / Plan
-
Will advance diet to clear liquids and assess if patient is able to tolerate. Continue zofran. No NGT.
Assessment / Plan
-
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
anastomosis). The revision was in 2020 for recurrent small bowel obstructions at the anastomosis, since then he has had no's bowel bowel obstructions until this past week.
He was discharged on 05/13 but was readmitted later that day for recurrence of his symptoms (nausea, abdominal pain)
CXR on 05/13 showed Persistent dilated loops of small bowel within the left upper quadrant, secondary to ongoing small bowel obstruction.
- Will advance diet to clear liquids
- Continue IV fluids until adequate oral intake
- No NGT
- OOB
- Continue antiemetics
- General Surgery will continue to follow with serial abdominal exams.
- It has been explained to the patient that if he ever does need further revision/surgery it would be prudent to perform a cholecystectomy as he has at least 1 gallstone that is roughly 3 cm in diameter which puts him at high risk for gallbladder
cancer.
Subjective Data
-
Date of Service: May 15, 2024
Met with patient at the bedside. He was seen resting comfortably in bed laying down listening to classical music. He states that he believes that he is slowly improving and that his gut is returning back to its normal baseline. He states that he
has been through this multiple times but this time his recovery period is much longer in duration and that he will be more mindful of this moving forward. He is not having any nausea or vomiting. He has had numerous loose stools with no blood or
discoloration. He does not feel distended. He is amenable to trying to advance his diet.
Objective Data
-
Intake and Output
05/14/24 05/15/24 05/16/24
06:59 06:59 06:59
Intake Total 800 / 800 1200 / 1200
Balance 800 / 800 1200 / 1200
Intake:
IV fluids (Total) 800 / 800 1200 / 1200
Other:
Number of approximated MODERATE 1
amounts of urine
Vital Signs
Temp Pulse Resp BP Pulse Ox
97.9 F 75 16 135/83 96
05/14/24 23:25 05/14/24 23:25 05/14/24 23:25 05/14/24 23:25 05/14/24 23:25
Lab Results
05/13/24 18:45
Calcium 8.9 mg/dl (8.4-10.2) 05/13/24 18:45
Total Bilirubin 0.7 mg/dl (0.2-1.3) 05/13/24 18:45
AST 40 U/L (17-59) 05/13/24 18:45
ALT 52 U/L (0-50) H 05/13/24 18:45
Alkaline Phosphatase 78 U/L (38-126) 05/13/24 18:45
Total Protein 6.0 g/dl (6.3-8.2) L 05/13/24 18:45
Albumin 3.5 g/dl (3.5-5.0) 05/13/24 18:45
Physical Exam
-
GENERAL/NEURO: Awake, Alert, no distress
CHEST: Unlabored breathing on RA
ABDOMEN: Soft, Non-Tender
Patient has a carnes catheter: No
Patient has a central line: No
--- NOTE | 2024-05-15 07:59 | W.PN.HOSP.TC ---
Today's Communication/Plan
-
see plan
Assessment / Plan
Assessment / Plan
Gen: NAD, AAOx3.
Eyes: EOMI, PERRLA, no scleral icterus.
Neck: supple.
CV: Remains RRR, +S1/S2, no m/r/g.
Resp: Remains CTAB, no rales, wheezes, or rhonchi.
Abd: Remains +BS, soft, NT, ND
Skin: No rashes.
Neuro: CN 2-12 intact, non-focal.
Psych: Normal mood and affect.
Abd Xray: Persistent dilated loops of small bowel within the left upper quadrant, likely secondary to ongoing small bowel obstruction.
Recurrent SBO:
-h/o Peutz-Jeghers syndrome
-recently hospitalized for SBO, discharged earlier on the day of admission after conservative management
-Advance to clears
-surgery following
Other problems:
Atrial tachycardia: continue diltiazem
HLD: cont statin
Anxiety
FULL/Lovenox
Anticipated Discharge: Within 24 hours
Subjective/Interval History
-
Date of Service: May 15, 2024
Patient reports multiple loose stools since I saw him yesterday. Denies abdominal pain.
Objective Data
-
Labs:
Laboratory Results
05/15/24
07:02
WBC Pending
Hgb Pending
Hct Pending
Plt Count Pending
Vital Signs:
Vital Signs
Temp Pulse Resp BP Pulse Ox
97.9 F 75 16 135/83 96
05/14/24 23:25 05/14/24 23:25 05/14/24 23:25 05/14/24 23:25 05/14/24 23:25
I&O
03/31/25 04/01/25 04/02/25
06:59 06:59 06:59
Intake Total 800 / 800 1200 / 1200
Balance 800 / 800 1200 / 1200
[2024-05-15 08:12] LABS: Hematocrit 40.2 % (39.0-52.0); Hemoglobin 13.6 g/dL (13.0-18.0); Mean Corp Hgb Conc. 33.8 g/dL (33.0-37.0); Mean Corpuscular Volume 88.5 fL (80.0-94.0); Mean Platelet Volume 9.7 fL (7.4-10.4); Platelet Count 234 10^3/uL (130-400); Red Blood Cell Count 4.54 10^6/uL (4.70-6.10); Red Cell Dist. Width 13.1 % (11.5-14.5); White Blood Cell Count 6.4 10^3/uL (4.8-10.8)
[2024-05-15] MEDS: CARDIZEM CD 120 MG PO (09:04)
--- NOTE | 2024-05-15 11:21 | CM ---
Patient out of the room for test. CM will continue to follow for discharge planning needs.
Plan; home with no needs.
[2024-05-15 15:00] VITALS: BP 138/69
[2024-05-15] MEDS: LOVENOX 40 MG SC (18:35)
[2024-05-15] MEDS: LIPITOR 10 MG PO (21:14)
[2024-05-15 23:30] VITALS: BP 158/74
[2024-05-16] MEDS: NSS 1000 IV (04:52)
[2024-05-16 07:20] VITALS: BP 153/67
[2024-05-16] MEDS: CARDIZEM CD 120 MG PO (08:06)
--- NOTE | 2024-05-16 09:36 | W.PN.HOSP.TC ---
Today's Communication/Plan
-
see plan
Assessment / Plan
Assessment / Plan
Gen: NAD, AAOx3.
Eyes: EOMI, PERRLA, no scleral icterus.
Neck: supple.
CV: continues to remain RRR, +S1/S2, no m/r/g.
Resp: continues to remain CTAB, no rales, wheezes, or rhonchi.
Abd: continues to remain +BS, soft, NT, ND
Skin: No rashes.
Neuro: CN 2-12 intact, non-focal.
Psych: Normal mood and affect.
Abd Xray: Persistent dilated loops of small bowel within the left upper quadrant, likely secondary to ongoing small bowel obstruction.
SB Xray: Moderate partial small bowel obstruction. 2 locations are identified suggesting adhesions in the lateral left mid abdomen proximal to mid jejunum, and mid to lower central abdomen distal jejunum/proximal ileum.
Recurrent SBO:
-h/o Peutz-Jeghers syndrome
-recently hospitalized for SBO, discharged earlier on the day of admission after conservative management
-surgery following
-advance to full liquids
Other problems:
Atrial tachycardia: continue diltiazem
HLD: cont statin
Anxiety
FULL/Lovenox
Anticipated Discharge: Within 24 hours
Subjective/Interval History
-
Date of Service: May 16, 2024
States he continues to moves bowels and feels his abdominal distention has resolved. Denies abd pain.
Objective Data
-
Vital Signs:
Vital Signs
Temp Pulse Resp BP Pulse Ox
98.3 F 66 16 153/67 97
05/16/24 07:20 05/16/24 08:06 05/16/24 07:20 05/16/24 08:06 05/16/24 07:20
I&O
04/01/25 04/02/25 04/03/25
06:59 06:59 06:59
Intake Total 1200 / 1200 1440 / 1440
Balance 1200 / 1200 1440 / 1440
--- NOTE | 2024-05-16 09:51 | CM ---
Patient seen at bedside, Patient plan is for discharge home with no needs on or tuesday. CM provided IMM for patient to review, no questions at this time. CM will continue to follow for discharge planning needs.
Plan; home with no needs anticipated
--- NOTE | 2024-05-16 14:16 | W.PN.GS2 ---
Today's Communication / Plan
-
FLD today, adv to lrd tomorrow if no further issues
Assessment / Plan
-
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
anastomosis). The revision was in 2020 for recurrent small bowel obstructions at the anastomosis, since then he has had no's bowel bowel obstructions until this past week.
He was discharged on 05/13 but was readmitted later that day for recurrence of his symptoms (nausea, abdominal pain)
CXR on 05/13 showed Persistent dilated loops of small bowel within the left upper quadrant, secondary to ongoing small bowel obstruction.
- Will cont fld today, adv to lrd tomorrow if no further issues
- Continue IV fluids for today
- OOB
- Continue antiemetics
- General Surgery will continue to follow with serial abdominal exams.
- It has been explained to the patient that if he ever does need further revision/surgery it would be prudent to perform a cholecystectomy as he has at least 1 gallstone that is roughly 3 cm in diameter which puts him at high risk for gallbladder
cancer.
Subjective Data
-
Date of Service: May 16, 2024
Pain and distention improving, passing flatus and BM, denies n/v, yvette fld so far today
Objective Data
-
Intake and Output
05/15/24 05/16/24 05/17/24
06:59 06:59 06:59
Intake Total 1200 / 1200 1440 / 1440 1020 / 1020
Balance 1200 / 1200 1440 / 1440 1020 / 1020
Intake:
Oral fluids 240 / 240 1020 / 1020
IV fluids (Total) 1200 / 1200 1200 / 1200
Other:
Number of approximated MODERATE 1 3 2
amounts of urine
Vital Signs
Temp Pulse Resp BP Pulse Ox
98.3 F 66 16 153/67 97
05/16/24 07:20 05/16/24 08:06 05/16/24 07:20 05/16/24 08:06 05/16/24 07:20
Lab Results
05/15/24 07:02
05/13/24 18:45
Calcium 8.9 mg/dl (8.4-10.2) 05/13/24 18:45
Total Bilirubin 0.7 mg/dl (0.2-1.3) 05/13/24 18:45
AST 40 U/L (17-59) 05/13/24 18:45
ALT 52 U/L (0-50) H 05/13/24 18:45
Alkaline Phosphatase 78 U/L (38-126) 05/13/24 18:45
Total Protein 6.0 g/dl (6.3-8.2) L 05/13/24 18:45
Albumin 3.5 g/dl (3.5-5.0) 05/13/24 18:45
Physical Exam
-
Gen: NAd
Abd: soft, mild distention, nt
[2024-05-16 15:19] VITALS: BP 125/74
[2024-05-16] MEDS: NSS IV (16:12)
[2024-05-16] MEDS: LOVENOX 40 MG SC (17:22)
[2024-05-16 18:08] VITALS: BP 138/89
[2024-05-16 19:51] VITALS: BP 137/72
[2024-05-16] MEDS: LIPITOR 10 MG PO (22:25)
[2024-05-16 23:20] VITALS: BP 147/80
[2024-05-17 07:18] VITALS: BP 133/75
[2024-05-17] MEDS: CARDIZEM CD 120 MG PO (08:18)
--- NOTE | 2024-05-17 08:24 | W.PN.HOSP.TC ---
Today's Communication/Plan
-
likely d/c tomorrow
Assessment / Plan
Assessment / Plan
Gen: remains NAD, AAOx3.
Eyes: remains EOMI, PERRLA, no scleral icterus.
Neck: supple.
CV: RRR, +S1/S2, no m/r/g.
Resp: CTAB, no rales, wheezes, or rhonchi.
Abd: +BS, soft, NT, ND
Skin: No rashes.
Neuro: remains CN 2-12 intact, non-focal.
Psych: Normal mood and affect.
Abd Xray: Persistent dilated loops of small bowel within the left upper quadrant, likely secondary to ongoing small bowel obstruction.
SB Xray: Moderate partial small bowel obstruction. 2 locations are identified suggesting adhesions in the lateral left mid abdomen proximal to mid jejunum, and mid to lower central abdomen distal jejunum/proximal ileum.
Recurrent SBO:
-h/o Peutz-Jeghers syndrome
-recently hospitalized for SBO, discharged earlier on the day of admission after conservative management
-surgery following
-advanced to LR diet
Other problems:
Atrial tachycardia: continue diltiazem
HLD: cont statin
Anxiety
FULL/Lovenox
Anticipated Discharge: Within 24 hours
Subjective/Interval History
-
Date of Service: May 17, 2024
Patient is tolerating low residue diet without abdominal pain. He had a bowel movement today.
Objective Data
-
Vital Signs:
Vital Signs
Temp Pulse Resp BP Pulse Ox
98.0 F 67 16 133/75 99
05/17/24 07:18 05/17/24 08:18 05/17/24 07:18 05/17/24 08:18 05/17/24 07:18
I&O
05/16/24 05/17/24 05/18/24
06:59 06:59 06:59
Intake Total 1440 / 1440 1500 / 1500
Balance 1440 / 1440 1500 / 1500
--- NOTE | 2024-05-17 08:53 | W.PN.GS2 ---
Today's Communication / Plan
-
`
Assessment / Plan
-
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
anastomosis). The revision was in 2020 for recurrent small bowel obstructions at the anastomosis, since then he has had no's bowel bowel obstructions until this past week.
clinically and radiographically resolved
Plan: Low residue diet
d/c home
Subjective Data
-
Date of Service: May 17, 2024
pt seen and examined
feeling well and getting back to baseline
no nausea
yvette full liquid diet
+fl and BMs
Objective Data
-
Intake and Output
05/16/24 05/17/24 05/18/24
06:59 06:59 06:59
Intake Total 1440 / 1440 1500 / 1500
Balance 1440 / 1440 1500 / 1500
Intake:
Oral fluids 240 / 240 1500 / 1500
IV fluids (Total) 1200 / 1200
Other:
Number of approximated SMALL 1
amounts of urine
Number of approximated MODERATE 3 1
amounts of urine
Vital Signs
Temp Pulse Resp BP Pulse Ox
98.0 F 67 16 133/75 99
05/17/24 07:18 05/17/24 08:18 05/17/24 07:18 05/17/24 08:18 05/17/24 07:18
Lab Results
05/15/24 07:02
05/13/24 18:45
Calcium 8.9 mg/dl (8.4-10.2) 05/13/24 18:45
Total Bilirubin 0.7 mg/dl (0.2-1.3) 05/13/24 18:45
AST 40 U/L (17-59) 05/13/24 18:45
ALT 52 U/L (0-50) H 05/13/24 18:45
Alkaline Phosphatase 78 U/L (38-126) 05/13/24 18:45
Total Protein 6.0 g/dl (6.3-8.2) L 05/13/24 18:45
Albumin 3.5 g/dl (3.5-5.0) 05/13/24 18:45
Physical Exam
-
NAD AAOx3
ABD: soft, mild distention, nontender
Patient has a carnes catheter: No
--- NOTE | 2024-05-17 15:26 | CM ---
Reviewed the chart notes and spoke with the patient at the bedside. IMM reviewed. The patient diet advanced to low residue. CM continues to be available to patient/family and is monitoring medical plan for needs at discharge.
Plan: Discharge to home when medically stable. No needs anticipated at this time.
[2024-05-17 15:37] VITALS: BP 125/60
[2024-05-17] MEDS: LOVENOX 40 MG SC (17:04)
[2024-05-17] MEDS: LIPITOR 10 MG PO (21:33)
[2024-05-17 23:37] VITALS: BP 121/70
[2024-05-18 07:45] VITALS: BP 125/67
[2024-05-18] MEDS: CARDIZEM CD 120 MG PO (08:53)
--- NOTE | 2024-05-18 10:15 | W.PN.HOSP.TC ---
Today's Communication/Plan
-
d/c
Assessment / Plan
Assessment / Plan
Gen: continues to remain NAD, AAOx3.
Eyes: continues to remain EOMI, PERRLA, no scleral icterus.
Neck: supple.
CV: RRR, +S1/S2, no m/r/g.
Resp: CTAB, no rales, wheezes, or rhonchi.
Abd: +BS, soft, NT, ND
Skin: No rashes.
Neuro: continues to remain CN 2-12 intact, non-focal.
Psych: Normal mood and affect.
Abd Xray: Persistent dilated loops of small bowel within the left upper quadrant, likely secondary to ongoing small bowel obstruction.
SB Xray: Moderate partial small bowel obstruction. 2 locations are identified suggesting adhesions in the lateral left mid abdomen proximal to mid jejunum, and mid to lower central abdomen distal jejunum/proximal ileum.
Recurrent SBO:
-h/o Peutz-Jeghers syndrome
-recently hospitalized for SBO, discharged earlier on the day of admission after conservative management
-surgery following
-advanced to LR diet
Other problems:
Atrial tachycardia: continue diltiazem
HLD: cont statin
Anxiety
FULL/Lovenox
Anticipated Discharge: Today
Subjective/Interval History
-
Date of Service: May 18, 2024
Tolerating LR diet, having BMs, asking to go home.
Objective Data
-
Vital Signs:
Vital Signs
Temp Pulse Resp BP Pulse Ox
97.7 F 64 16 125/67 95
05/18/24 07:45 05/18/24 08:53 05/18/24 07:45 05/18/24 08:53 05/18/24 07:45
I&O
05/17/24 05/18/24 05/19/24
06:59 06:59 06:59
Intake Total 1500 / 1500 1280 / 1280
Balance 1500 / 1500 1280 / 1280
[2024-05-18 11:36] VITALS: BP 130/82
--- NOTE | 2024-05-18 13:11 | W.DCSUMMARY ---
Discharge Summary
Discharge Data
Date of Admission: 05/13/24
Date of Discharge: 05/18/24
-
Pending Results: No
Hospital Course
Primary diagnoses:
Recurrent small bowel obstruction
Secondary diagnoses:
Peutz-Jeghers syndrome
Atrial tachycardia
Hyperlipidemia
Anxiety
Consultants:
General Surgery
Imaging:
Abd Xray: Persistent dilated loops of small bowel within the left upper quadrant, likely secondary to ongoing small bowel obstruction.
SB Xray: Moderate partial small bowel obstruction. 2 locations are identified suggesting adhesions in the lateral left mid abdomen proximal to mid jejunum, and mid to lower central abdomen distal jejunum/proximal ileum.
Hospital course: 68 y/o M who presented shortly after discharge with chief complaints of nausea and abdominal pain as outlined in H&P done on admission. Imaging above. The patient was initially kept n.p.o. and supported with IV fluids. His
symptoms improved. His diet was slowly and progressively advanced and he was tolerating a low residue diet at the time of discharge. He was discharged in medically stable condition
Discharge Plan
-
Patient Disposition: Home (Routine Discharge)
Discharge Diagnosis/Procedures: Recurrent small bowel obstruction
Condition: Good
Diet: Low Cholesterol and Low Residue
Activity: As tolerated
Driving Restrictions: As prior to admission
Referrals:
Dashawn Lee DO [Family Provider] - in less than 1 week
Prescriptions:
Continued
simvastatin 20 mg Tablet
20 mg PO HS
diltiazem HCl [Cardizem CD] 120 mg Capsule,Extended Release 24hr
120 mg PO DAILY
Discharge Orders:
Discharge Patient (As Directed); Ordered 05/18/24
Ordered By: Yobani Gonzalez
Discharge Date and Time
Discharge Date/Time: 05/18/24 11:54
Print Language: CROATIAN
== END 2024-05-18 11:54 | disposition home or self-care (01) | DRG 389 ==
LOC: 2 NORTH 20:39
PROVIDERS: Physician Assistant; Registered Nurse; ADMITTING PHYSICIAN Internal Medicine; ATTENDING PHYSICIAN Internal Medicine; EMERGENCY PHYSICIAN Emergency Medicine; FAMILY PHYSICIAN Family Medicine
DX: K56.51 Intestinal adhesions [bands], with partial obstruction (principal); I47.19 Other supraventricular tachycardia; Q85.89 Other phakomatoses, not elsewhere classified; E78.5 Hyperlipidemia, unspecified; F41.9 Anxiety disorder, unspecified
CPT/HCPCS: 74018; 74250; 80053; 85027; 96361; 96374; 96375; 99285